=== PATIENT | female | born 1960 | race Caucasian/White ===

== ENCOUNTER → 2016-08-17 | Outpatient (CLI) | payer OTHER ==
[~2016-08-17] MED LIST: CHOL100010 PO; CLR10 PO; MELOPOW PO; OXYB10GE PV; TEMA15CA4 PO; TEMA30CA4 PO
[2016-08-17 12:17] LABS: BASO % 0.3 %; BASO ABS # 0.02 K/uL (0-0.2); COMPLETE YES; EOS % 3.8 %; HEMATOCRIT 41.3 % (37-47); IG% 0.4 %; LYMPH ABS # 1.42 K/uL (1.2-3.4); MEAN CELL VOLUME 83.3 fL (80-100); MEAN CORPUSCULAR HGB CONC 32.4 g/dl (32-36); MONO % 4.5 %; PLATELET COUNT 205 K/uL (130-400); RED BLOOD COUNT 4.96 M/uL (4.2-5.4)
[2016-08-17 12:34] LABS: ALT/SGPT 34 U/L (12-78); AST/SGOT 18 U/L (15-37); BLOOD UREA NITROGEN 29 mg/dl (7-18); CALCIUM 9.2 mg/dl (8.5-10.1); CARBON DIOXIDE 27 mmol/L (21-32); CHLORIDE 105 mmol/L (98-107); GLUCOSE 89 mg/dl (70-99); POTASSIUM 4.2 mmol/L (3.5-5.1); SODIUM 141 mmol/L (136-145)
[2016-08-17 12:42] LABS: ALB/GLOB RATIO 0.9 (0.9-2); ALKALINE PHOSPHATASE 83 U/L (45-117); CHOLESTEROL 167 mg/dl (0-200); FERRITIN 86.6 ng/ml (8.0-388.0); HDL CHOLESTEROL 42 mg/dl; LDL CHOLESTEROL CALCULATED 81 mg/dl; TRIGLYCERIDES 221 mg/dl (0-150); VERY LOW DENSITY LIPOPROT CALC 44 mg/dl
[2016-08-17 13:59] LABS: ESTIMATED AVERAGE GLUCOSE 103 mg/dl; HA1C FLAG Normal (Normal)
== END | disposition home or self-care (01) ==
LOC: C.LAB1850 11:10
PROVIDERS: ATTEND Family Medicine
DX: K90.9 Intestinal malabsorption, unspecified (principal); R73.03 Prediabetes; E55.9 Vitamin D deficiency, unspecified; D50.8 Other iron deficiency anemias; E78.5 Hyperlipidemia, unspecified

== ENCOUNTER → 2017-01-01 | Outpatient (CLI) | payer OTHER ==
--- NOTE | 2017-01-02 07:42 | MAMMOGRAPHY REPORT ---
BILATERAL DIGITAL SCREENING MAMMOGRAM WITH CAD: 01/01/2017 CLINICAL HISTORY: Routine screening. Patient has no complaints. TECHNIQUE: Bilateral CC and MLO views were obtained. Additional left CC and bilateral MLO views were obtained for tissue inclusion. Current study was also evaluated with a Computer Aided Detection (CA D) system. COMPARISON: Comparison is made to exams dated: 02/05/2013 mammogram, 04/06/2010 mammogram, 05/24/1999 mammogram, and 11/29/1998 mammogram - [facility]. BREAST COMPOSITION: The tissue of both breasts is almost entirely fatty. FINDINGS: There are benign intramammary nodes in both breasts. No suspicious mass, architectural di stortion or cluster of suspicious microcalcifications is seen. IMPRESSION: ACR BI-RADS CATEGORY 2: BENIGN There is no mammographic evidence of malignancy. A 1 year screening mammogram is recommended. The pa tient will receive written notification of the results. Approximately 10% of breast cancers are not detected with mammography. A negative mammographic report should not delay biopsy if a clinically suggestive mass is present. Chari Baker M.D. ay/:01/01/2017 16:18:23 Asbestos Hazard Abatement Worker: Margaret TERAN(R)(Annie), [facility] letter sent: Normal 1/2 BI-RADS Code: ACR BI-RADS Category 2: Benign
== END | disposition home or self-care (01) ==
LOC: C.MAMM 10:47
PROVIDERS: ATTEND Internal Medicine
DX: Z12.31 Encounter for screening mammogram for malignant neoplasm of breast (principal); E55.9 Vitamin D deficiency, unspecified; K90.9 Intestinal malabsorption, unspecified

== ENCOUNTER → 2017-01-01 | Outpatient (CLI) | payer OTHER ==
[2017-01-01 13:40] LABS: ESTIMATED AVERAGE GLUCOSE 105 mg/dl; HA1C FLAG Normal (Normal)
[2017-01-01 13:53] LABS: ALT/SGPT 281 U/L (12-78); BLOOD UREA NITROGEN 29 mg/dl (7-18); BUN/CREATININE RATIO 24.4 (10-20); CALCIUM 9.7 mg/dl (8.5-10.1); CARBON DIOXIDE 25 mmol/L (21-32); CHLORIDE 107 mmol/L (98-107); CHOLESTEROL 185 mg/dl (0-200); GLUCOSE 95 mg/dl (70-99); POTASSIUM 4.3 mmol/L (3.5-5.1); SODIUM 140 mmol/L (136-145); TRIGLYCERIDES 240 mg/dl (0-150); VERY LOW DENSITY LIPOPROT CALC 48 mg/dl
[2017-01-01 14:02] LABS: ALB/GLOB RATIO 0.8 (0.9-2); ALKALINE PHOSPHATASE 200 U/L (45-117); AST/SGOT 36 U/L (15-37); CHOLESTEROL/HDL RATIO 4.9; HDL CHOLESTEROL 38 mg/dl; LDL CHOLESTEROL CALCULATED 99 mg/dl
== END | disposition home or self-care (01) ==
LOC: C.LAB1850 11:48
PROVIDERS: ATTEND Family Medicine
DX: E78.5 Hyperlipidemia, unspecified (principal); R73.03 Prediabetes; E03.9 Hypothyroidism, unspecified; E55.9 Vitamin D deficiency, unspecified

== ENCOUNTER → 2017-01-10 | Outpatient (CLI) | payer OTHER ==
[2017-01-10 15:25] LABS: ALKALINE PHOSPHATASE 108 U/L (45-117); ALT/SGPT 38 U/L (12-78); AST/SGOT 16 U/L (15-37)
== END | disposition home or self-care (01) ==
LOC: C.LAB 12:49
PROVIDERS: ATTEND Family Medicine
DX: R74.8 Abnormal levels of other serum enzymes (principal)

== ENCOUNTER → 2017-02-22 | Outpatient (CLI) | payer OTHER ==
--- NOTE | 2017-02-22 13:49 | DIAGNOSTIC IMAGING REPORT ---
ABDOMEN FOR HERNIA CLINICAL HISTORY: K43.2 Incisional [id number] hernia TECHNIQUE: Ultrasound COMPARISON STUDY: None FINDINGS: Fat-containing hernia lower right abdominal wall to the site of clinically palpable nodularity. Maximum diameter of hernias 2.7 cm. Maximum fat-containing component is 5 cm. No evidence of bowel containment. IMPRESSION: Fat-containing incisional hernia right lower anterior abdominal wall The above report was generated using voice recognition software. It may contain grammatical, syntax or spelling errors. Electronically signed by: Ciro Sow M.D. 02/22/2017 1:47 PM Dictated Date/Time: 02/22/2017 1:46 PM
== END | disposition home or self-care (01) ==
LOC: C.ULTR 13:13
PROVIDERS: ATTEND Internal Medicine
DX: K43.2 Incisional hernia without obstruction or gangrene (principal)

== ENCOUNTER → 2017-05-01 | Outpatient (CLI) | payer OTHER ==
[2017-05-01 15:37] LABS: HEMATOCRIT 42.6 % (37-47); MEAN CORPUSCULAR HEMOGLOBIN 27.3 pg (25-34); MEAN CORPUSCULAR HGB CONC 32.9 g/dl (32-36); MEAN PLATELET VOLUME 9.9 fL (7.4-10.4); PLATELET COUNT 181 K/uL (130-400); RED BLOOD COUNT 5.13 M/uL (4.2-5.4); WHITE BLOOD COUNT 6.81 K/uL (4.8-10.8)
[2017-05-01 15:50] LABS: ALT/SGPT 31 U/L (12-78); BLOOD UREA NITROGEN 33 mg/dl (7-18); BUN/CREATININE RATIO 28.3 (10-20); CALCIUM 9.9 mg/dl (8.5-10.1); CARBON DIOXIDE 26 mmol/L (21-32); CHLORIDE 105 mmol/L (98-107); CREATININE 1.18 mg/dl (0.60-1.20); GLUCOSE 97 mg/dl (70-99); POTASSIUM 4.3 mmol/L (3.5-5.1); SODIUM 140 mmol/L (136-145)
[2017-05-01 16:01] LABS: ALB/GLOB RATIO 0.8 (0.9-2); ALKALINE PHOSPHATASE 113 U/L (45-117); AST/SGOT 18 U/L (15-37)
== END | disposition home or self-care (01) ==
LOC: C.LAB1850 14:12
PROVIDERS: ATTEND Internal Medicine
DX: E03.9 Hypothyroidism, unspecified (principal); R79.89 Other specified abnormal findings of blood chemistry; E55.9 Vitamin D deficiency, unspecified

== ENCOUNTER → 2017-05-15 | Outpatient (CLI) | payer OTHER ==
[2017-05-15 16:04] LABS: PROLACTIN 6.43 ng/mL
== END | disposition home or self-care (01) ==
LOC: C.LAB1850 14:54
PROVIDERS: ATTEND Physician Assistant
DX: N92.6 Irregular menstruation, unspecified (principal)

== ENCOUNTER → 2017-05-29 | Outpatient (CLI) | payer OTHER | END | disposition home or self-care (01) | LOC: C.PAPS 15:45 | PROVIDERS: ATTEND Physician Assistant | DX: Z12.4 Encounter for screening for malignant neoplasm of cervix (principal) ==

== ENCOUNTER → 2017-06-26 | Outpatient (CLI) | payer OTHER | END | disposition home or self-care (01) | LOC: C.PATHSPEC 17:40 | PROVIDERS: ATTEND Obstetrics & Gynecology | DX: N95.0 Postmenopausal bleeding (principal) ==

== ENCOUNTER 2017-07-23 09:47 | Day surgery (SDC) | payer OTHER ==
[2017-07-12 14:47] VITALS: BMI 51.0
--- NOTE | 2017-07-12 15:22 | PAT Medication Instructions ---
Service Date Jul 12, 2017. Current Home Medication List Albuterol Hfa (Ventolin Hfa), 2 PUFFS INH Q6H PRN for PRN Cholecalciferol (Vitamin D3), 1 CAP PO HS Cyanocobalamin (Vitamin B12), 1,000 MCG SL QPM Fluticasone Prop/Salmeterol (Advair Diskus 250/50 60 Dose), 1 PUFF INH HS Loratadine (Loratadine), 10 MG PO PRN Multiple Vitamins W/ Minerals (Multi Adult Gummies), 2 TAB PO HS Oxycodone Ir (Roxicodone Ir), 5 MG PO QID Temazepam (Restoril), 30 MG PO HS Temazepam (Restoril), 15 MG PO HS [Albuterol Neb], 1 PUFF INH PRN Medication Instructions For Your Scheduled Surgery - Check with surgeon for instructions: Oxycodone Ir (Roxicodone Ir), 5 MG PO QID (otherwise okay from anesthesia perspective to take up to 4 hours prior to surgery if needed) - Hold the following medications the morning of surgery: Loratadine (Loratadine), 10 MG PO PRN Multiple Vitamins W/ Minerals (Multi Adult Gummies), 2 TAB PO HS - Take the following medications the morning of surgery with a sip of water: [Albuterol Neb], 1 PUFF INH PRN (if needed) Albuterol Hfa (Ventolin Hfa), 2 PUFFS INH Q6H PRN for PRN (if needed) - Take the following medications as scheduled the night before surgery: [Albuterol Neb], 1 PUFF INH PRN (if needed) Temazepam (Restoril), 30 MG PO HS Temazepam (Restoril), 15 MG PO HS Oxycodone Ir (Roxicodone Ir), 5 MG PO QID Loratadine (Loratadine), 10 MG PO PRN (if needed) Fluticasone Prop/Salmeterol (Advair Diskus 250/50 60 Dose), 1 PUFF INH HS Cholecalciferol (Vitamin D3), 1 CAP PO HS Cyanocobalamin (Vitamin B12), 1,000 MCG SL QPM Albuterol Hfa (Ventolin Hfa), 2 PUFFS INH Q6H PRN for PRN (if needed) If you have any questions please call us at [phone] or [phone] or [phone]
[2017-07-12 16:00] LABS: BASO % 0.3 %; BASO ABS # 0.02 K/uL (0-0.2); EOS % 3.9 %; HEMATOCRIT 43.1 % (37-47); HEMOGLOBIN 14.1 g/dL (12.0-16.0); IG# 0.02 K/uL (0.00-0.02); LYMPH % 22.7 %; LYMPH ABS # 1.73 K/uL (1.2-3.4); MEAN CELL VOLUME 83.7 fL (80-100); MEAN CORPUSCULAR HEMOGLOBIN 27.4 pg (25-34); MEAN CORPUSCULAR HGB CONC 32.7 g/dl (32-36); MEAN PLATELET VOLUME 9.5 fL (7.4-10.4); MONO % 4.3 %; MONO ABS # 0.33 K/uL (0.11-0.59); NEUT % 68.5 %; NEUT ABS # 5.22 K/uL (1.4-6.5); PLATELET COUNT 219 K/uL (130-400); RED CELL DISTRIBUTION WIDTH CV 14.1 % (11.5-14.5); RED CELL DISTRIBUTION WIDTH SD 42.9 fL (36.4-46.3); WHITE BLOOD COUNT 7.62 K/uL (4.8-10.8)
[2017-07-12 16:08] LABS: CALCIUM 9.9 mg/dl (8.5-10.1); CREATININE 1.18 mg/dl (0.60-1.20); POTASSIUM 4.4 mmol/L (3.5-5.1)
[~2017-07-23] VITALS: Ht 163.8 cm; Wt 138.1 kg
[~2017-07-23 09:47] MED LIST changes: +ADVIN25/60 INH; +ALBUTEROL NEB INH; -CHOL100010 PO; +CHOL2000 PO; -CLR10 PO; +CYAN100020 SL; +LACTATED RINGER'S 1000ML 1,000 ML IV SCH; +LORA10CA10 PO; -MELOPOW PO; +MULT1CHW37 PO; -OXYB10GE PV; +OXYC1TAB3 PO; +VNTHFA/IN INH
[2017-07-23] MEDS ORDERED: MIDAZOLAM HCL 1 MG/ML 2ML VIAL ONE (10:17)
[2017-07-23] MEDS ORDERED: FENTANYL CITRATE INJ 50 MCG/1 ML 2 ML VIAL ONE (10:18)
[2017-07-23] MEDS ORDERED: PEDICHW50 PO (10:19)
[2017-07-23 10:21] VITALS: BP 199/90; PULSE 78; TEMP 36.8; O2SAT 96; Ht 163.8 cm; Wt 138.1 kg
[2017-07-23] MEDS ORDERED: SCOPOLAMINE 1.5 MG TDSY TD SCH (11:15)
[2017-07-23] MEDS ORDERED: EpHEDrine SULFATE INJ 50 MG/ML AMP IV PRN (11:15)
[2017-07-23] MEDS ORDERED: HYDROmorphone INJ 1 MG/ML SYR IV PRN (11:15)
[2017-07-23] MEDS ORDERED: ATROPINE SULFATE 0.1 MG/ML 5ML SYR IV PRN (11:15)
[2017-07-23] MEDS ORDERED: ONDANSETRON INJ 2 MG/ML 2 ML VIAL IV PRN ×2 (11:15→12:45)
[2017-07-23] MEDS ORDERED: PROMETHAZINE HCL INJ 12.5 MG in SODIUM CHLORIDE 0.9% 50ML 50 ML IV PRN (11:15)
--- NOTE | 2017-07-23 11:19 | History & Physical Bridge Note ---
H&P Re-Evaluation Bridge Note: I have examined the patient, reviewed the History & Physical and in the interval since the performance of the History & Physical I have noted the following changes of clinical significance: No changes noted
--- NOTE | 2017-07-23 11:21 | Discharge Instructions ---
Discharge Instructions Date of Service Jul 23, 2017. Visit Reason for Visit: Post Menopausal Bleeding Discharge Discharge Diagnosis / Problem: D&C Hysteroscopy, Mirena placement Discharge Goals Goal(s): Specific goals Activity Recommendations Activity Limitations: per Instructions/Follow-up section Anesthesia . Post Anesthesia Instructions: If you have had General Anesthesia or IV Sedation: * Do not drive today. * Resume driving when surgeon permits. * Do not make important decisions or sign legal documents today. * Call surgeon for: 1. Temperature elevations greater than 101 degrees F. 2. Uncontrollable pain. 3. Excessive bleeding. 4. Persistent nausea and vomiting. 5. Medication intolerance (nausea, vomiting or rash). * For nausea and vomiting use only clear liquids such as: tea, soda, bouillon until nausea subsides, then gradually increase diet as tolerated. * If you have any concerns or questions, call your surgeon's office. If physician is unavailable and it is an emergency, call 911 or go to the nearest emergency room. . Instructions / Follow-Up Instructions / Follow-Up ACTIVITY RECOMMENDATIONS: * Avoid tampons, douching, hot tubs, pools, and intercourse until bleeding has stopped. * May shower as usual. * No strenuous activity for 24-48 hours. After 24-48 hours, you may do anything you feel like doing (driving and sports are okay). SPECIAL CARE INSTRUCTIONS: Special Diet: * Mild nausea may occur in the immediate post-operative period. * Take clear liquids such as tea, cola or bouillon until all nausea has subsided; you may then resume your normal diet. Special Care: * Light bleeding and vaginal spotting can last from a few days to 3-4 weeks. Call your doctor if bleeding becomes heavier than the heaviest part of your period. * Check your temperature twice a day for one week. If it goes above 100.4 degrees Fahrenheit (38.0 Celsius), notify your doctor. * Call your doctor's office for an appointment for 6 weeks after your surgery. FOLLOW-UP VISIT: Call your doctor's office for an appointment for 6 weeks after your surgery. Diet Recommendations Recommended Home Diet: no limitations, resume previous diet Pending Studies Studies pending at discharge: no Medical Emergencies . Who to Call and When: Medical Emergencies: If at any time you feel your situation is an emergency, please call 911 immediately. . Non-Emergent Contact Non-Emergency issues call your: Primary Care Provider . . "Provider Documentation" section prepared by Kristine Lynch. .
[2017-07-23] MEDS ORDERED: PROPOFOL IV EMULSION 10 MG/ML 20 ML VIAL IV ONE (12:13)
[2017-07-23] MEDS ORDERED: ONDANSETRON INJ 2 MG/ML 2 ML VIAL ONE (12:13)
[2017-07-23] MEDS ORDERED: ROCURONIUM BROMIDE 10 MG/ML 5 ML VIAL IV ONE (12:13)
[2017-07-23] MEDS ORDERED: LIDOCAINE HCL 2% 2 ML VIAL (20MG/ML) ONE (12:13)
[2017-07-23] MEDS ORDERED: DEXAMETHASONE SOD INJ 4 MG/ML VIAL ONE (12:13)
[2017-07-23] MEDS ORDERED: SUCCINYLCHOLINE CHLORIDE 20 MG/ML 10 ML VIAL IV ONE (12:13)
--- NOTE | 2017-07-23 12:40 | [facility] Post Operative Brief Note ---
Immediate Operative Summary Operative Date Jul 23, 2017. Pre-Operative Diagnosis 1. Abnormal uterine bleeding 2. Failed ablation 3. Multiple risk factors for endometrial cancer Post-Operative Diagnosis 1. Abnormal uterine bleeding 2. Failed ablation 3. Multiple risk factors for endometrial cancer 4. Endometrial polyps Procedure(s) Performed Dilation and curretage, hysteroscopy,polypectomy, and placement of Mirena Surgeon Dr. Kristine Lynch MD Food Service Attendant Surgeon(s) None Estimated Blood Loss 10ml Findings Consistent with Post-Op Diagnosis Mirena Lot # [id number], Exp 12/05 Specimens A. Endometrial currettings B. Endometrial polyp Drains None Anesthesia Type General Complication(s) none Disposition Accompanied Pt To Recover: no Disposition: Recovery Room / PACU
[2017-07-23] MEDS ORDERED: SODIUM CHLORIDE 0.9% 1000ML 1,000 ML IV SCH (12:41)
[2017-07-23] MEDS ORDERED: IBUPROFEN 600 MG TAB PO PRN (12:45)
[2017-07-23] MEDS ORDERED: KETOROLAC TROMETHAMINE 30 MG/ML VIAL IV. PRN (12:45)
[2017-07-23] MEDS ORDERED: PROMETHAZINE HCL INJ 25 MG in SODIUM CHLORIDE 0.9% 50ML 50 ML IV PRN (12:45)
[2017-07-23] MEDS ORDERED: OXYCODONE/ACETAMINOPHEN 5-325 TAB PO PRN ×2 (12:45)
[2017-07-23] MEDS: FENTANYL CITRATE INJ 50 MCG/1 ML 2 ML VIAL IV PRN ×4 (13:12→13:26)
--- NOTE | 2017-07-23 13:37 | Anesthesiology Progress Note ---
Anesthesia Post Op Note Date & Time Jul 23, 2017 at 13:37 Vital Signs Pain Intensity: 2 Vital Signs Past 12 Hours Date Time Temp Pulse Resp B/P (MAP) Pulse Ox O2 Delivery O2 Flow Rate FiO2 07/23/17 13:27 84 21 81 07/23/17 13:27 87 21 07/23/17 13:26 136/79 07/23/17 13:25 78 19 97 07/23/17 13:25 79 19 07/23/17 13:21 164/68 07/23/17 13:20 76 15 99 07/23/17 13:20 76 15 07/23/17 13:16 148/75 07/23/17 13:15 79 18 99 07/23/17 13:15 78 18 07/23/17 13:14 153/73 07/23/17 13:12 153/73 07/23/17 13:10 81 14 07/23/17 13:10 82 14 99 07/23/17 13:07 155/65 07/23/17 13:05 80 17 99 07/23/17 13:05 81 17 07/23/17 13:01 156/74 07/23/17 13:00 80 21 99 07/23/17 13:00 82 21 07/23/17 12:59 157/74 07/23/17 12:56 171/105 07/23/17 12:55 83 17 99 07/23/17 12:55 82 17 07/23/17 12:51 163/106 07/23/17 12:50 86 21 07/23/17 12:50 86 21 97 07/23/17 12:50 37.3 86 20 163/106 (110) 98 Oxymask 10 07/23/17 10:21 36.8 78 18 199/90 (126) 96 Room Air Notes Mental Status: alert / awake / arousable, participated in evaluation Pt Amnestic to Procedure: Yes Nausea / Vomiting: adequately controlled Pain: adequately controlled Airway Patency, RR, SpO2: stable & adequate BP & HR: stable & adequate Hydration State: stable & adequate Anesthetic Complications: no major complications apparent
[2017-07-23 13:56] VITALS: BP 152/72; PULSE 74; TEMP 36.5; O2SAT 97
[2017-07-23 14:26] VITALS: BP 160/70; PULSE 73; TEMP 36.6; O2SAT 97
--- NOTE | 2017-07-23 14:27 | OPERATIVE REPORT ---
DATE OF OPERATION: 07/23/2017 PREOPERATIVE DIAGNOSIS: 1. Perimenopausal abnormal uterine bleeding. 2. Failed uterine ablation. 3. Multiple risk factors for endometrial cancer. POSTOPERATIVE DIAGNOSES: Same plus endometrial polyps. PROCEDURES: D&C, hysteroscopy, polypectomy and placement of Mirena. SURGEON: Dr. Lynch. BUILDING COORDINATOR: None. ESTIMATED BLOOD LOSS: 10 mL. FINDINGS: Endometrial cavity with ostia seen bilaterally and small polypoid projections from the posterior uterine wall into the cavity, significant calcifications were noted in the polyps and in the surrounding endometrial tissue, some areas of significant vascularity were also noted. Mirena placed during the procedure noted to have lot number [id number], expires December 05. SPECIMENS: Endometrial curettings and endometrial polyps. DRAINS: None. ANESTHESIA: General. COMPLICATIONS: None. DISPOSITION: Stable to recovery. DESCRIPTION: Sharri Yoon was placed on the table where she was carefully positioned prior to administering anesthesia ensuring that comfortable padding had been placed under her right shoulder as well as her hips and that her arms were to comfortable angle. The patient was then established under general anesthesia. Her legs were removed in to the [facility] stirrups in a careful manner supporting them at all times due to her past medical history. Once the patient was positioned, she was prepped using Hibiclens given her sensitivity to Betadine. The bladder was straight catheterized for approximately 50 mL of clear yellow urine. A Graves' speculum was then placed in the vagina. The cervix was able to be visualized and grasped with a single-tooth tenaculum. The uterus sounded to 9.5 cm. It was then serially dilated to allow entrance of the 5 mm hysteroscope. The scope was placed to the fundus and the cavity was then visualized, ostia being seen bilaterally. The cavity was essentially normal in shape with small polyps noted to be protruding from the posterior uterine wall towards the right side. Additionally, there were areas of calcification and some areas of significant vascularity noted on exam of the endometrial surface. The scope was then withdrawn and a brief sharp curettage was carried out retrieving significant endometrial curettings and some material that likely represented the polyps that had been seen on hysteroscopy. An attempt was made to grasp these pieces of solid tissue and then these are separate exam as polyp. The scope was reintroduced, significant tissue was still seem to be present and so the scope was withdrawn and curetting was done once more. The scope was then replaced and at this time, the cavity was seen to have been essentially scraped clean. Cavity was drained of fluid using the hysteroscope, and the scope was removed. The Mirena was then gently inserted to the fundus and deployed in the usual manner. Strings were then trimmed after removal of the insertion device, leaving 1.5 cm protruding from the cervical os into the upper vagina. The speculum was then removed and the procedure was brought to completion. I attest to the content of the Intraoperative Record and any orders documented therein. Any exception s are noted below.
[2017-07-23] MEDS ORDERED: CHECK SCOPOLAMINE PATCH PLACEMENT SCH (16:00)
== END 2017-07-23 14:50 | disposition home or self-care (01) ==
LOC: C.ACU 09:47
PROVIDERS: ATTEND Obstetrics & Gynecology
DX: N93.8 Other specified abnormal uterine and vaginal bleeding (principal); N84.0 Polyp of corpus uteri; Z98.890 Other specified postprocedural states; I12.9 Hypertensive chronic kidney disease with stage 1 through stage 4 chronic kidney disease, or unspecified chronic kidney disease; F41.9 Anxiety disorder, unspecified; Z98.84 Bariatric surgery status; M19.90 Unspecified osteoarthritis, unspecified site; N18.9 Chronic kidney disease, unspecified; Z88.5 Allergy status to narcotic agent; E66.01 Morbid (severe) obesity due to excess calories; Z68.43 Body mass index [BMI] 50.0-59.9, adult; Z90.89 Acquired absence of other organs; Z82.5 Family history of asthma and other chronic lower respiratory diseases

== ENCOUNTER → 2018-01-25 | Outpatient (CLI) | payer OTHER ==
[~2018-01-25] MED LIST changes: -LACTATED RINGER'S 1000ML 1,000 ML IV SCH; -MULT1CHW37 PO; +OXYC-90 PO; -OXYC1TAB3 PO; +PEDICHW50 PO; -TEMA15CA4 PO
== END | disposition home or self-care (01) ==
LOC: C.LAB 12:26
PROVIDERS: ATTEND Internal Medicine
DX: E03.9 Hypothyroidism, unspecified (principal)